=== PATIENT | female | born 2000 ===

== ENCOUNTER 2025-03-27 15:12 | Emergency (ER) | payer OTHER, SELFPAY ==
--- OUTSIDE RECORDS SUMMARY | 2024-11-27 03:30 | XMS_ITS ---
Author Organization [facility] vices Address [address] [place], [place] [id number] Care Team Providers Care Upsetter Helper Name Role Phone Emily Ngo Primary Care Provider [phone] REASON FOR VISIT WWE Social History Sex Assigned At : Social History Observation Description Sex Assigned At Female Encounters Encounter Location Date Provider Diagnosis Main [address] [place] [id number] 11/27/2024 Emily Ngo Plan Of Treatment No Information Progress Notes * Kathleen MACDONALDDOB:[birth year] (24 yo F)Acc No.[id number]:11/27/2024 Medical Note Patient: Stephany rileyKathleen das :?Emily NgoDOB:2000???Age:24 Y???Sex: FemaleDate:11/27/2024Phone:[phone]:[address] [place], [place] [id number] Subjective: * Chief Complaints: * W WE Billing Information: * Procedure Codes: * Electronic signature of NOAH Mullins on 03/27/2025 at 06:16 PM ESTSign off status: Pending * Provider: Stephany Ngo Date: 0 11/27/2024 Generated for Printing/Faxing/eTransmitting on:?03/27/2025 06:16 PM EST
--- OUTSIDE RECORDS SUMMARY | 2024-12-16 04:15 | XMS_ITS ---
Author Organization [facility] vices Address [address] [place] [id number] Care Team Providers Care Congressional Aide Name Role Phone Emily Ngo Primary Care Provider REASON FOR VISIT WWE Social History Sex Assigned At : Social History Observation Description Sex Assigned At Female Encounters Encounter Location Date Provider Diagnosis [place] [address] [place] [id number] 12/16/2024 Emily Ngo Plan Of Treatment No Information Progress Notes * Kathleen MACDONALDDOB:[birth year] (24 yo F)Acc No.[id number]:12/16/2024 Progress Notes Patient: Stephany rileypippa Kathleen :?Emily NgoDOB:2000???Age:24 Y???Sex: FemaleDate:12/16/2024Phone:[phone]:[address] [place], [place] [address] Subjective: * Chief Complaints: * W WE Billing Information: * Procedure Codes: * Electronic signature of NOAH Mullins on 03/27/2025 at 06:16 PM ESTSign off status: Pending * Provider: Stephany Ngo Date: 0 12/16/2024 Generated for Printing/Faxing/eTransmitting on:?03/27/2025 06:16 PM EST
--- OUTSIDE RECORDS SUMMARY | 2025-03-10 07:13 | XMS_ITS | Continuity of Care Document ---
Author Organization [facility] Address [address] [place] [address] Phone Care Team Providers Care Installation Tech Name Role Phone Case Edwige REBOLLEDO Unavailable Unavailable Allergies, Adverse Reactions, Alerts Substance Reaction Status Criticality No Known Allergies Active No Inform ation Medications Medication Instructions Dosage Effective Dates (start - stop) Status Comments clindamycin HCl 300 mg capsule take 1 capsule by oral route every 6 hours 300 MG - No Longer Active Procedures Procedure Date Extract; Erupted Th/exposted Rt 025 Oral Hygiene Instruction Oral Hygiene Instruction Treatment Not Completed Oral Hygiene Instruction Comp Oral Eval New/estab Patient 2024 Advance Directives Directive Yes / No Effective Date File Name No Information Encounters Encounter Description Practice Location Reason(s) For Visit Diagnoses Date Provider Providers Copied on Encounter [facility], [address] [place] [address], [id number] , tel: [phone] Dental Clinic Dental caries, unspecifiedEncounter for screening for dental disorders 5 Case DDS Edwige. [address] [place] [address], [id number] , [place]. tel: [phone] [facility], [address] [place] [address], [id number] , tel: [phone] Dental Clinic Encounter for screening for dental disorders 5 Case DDS Edwige. [address] [place] [address], [id number] , [place]. tel: [phone] [facility], [address], [place], [id number] , [place] tel: [phone] Dental Clinic dental new (chief complaint) Encounter for screening for dental disorders 5 Case DDJared Gibbons. [address], [place], [id number] , [place]. tel: [phone] Family History Family Member Type Diagnosis Age At Onset No Information Payers Payer name Insurance type Covered green party ID Authoriza tion(s) No Information Social History Type Description Quantity Date Captured Comments Sex Female Smoking Status No Information Chief Complaint And Reason For Visit No Information Reason For Referral Reason For Referral No Information Plan Of Treatment Date Type Action Status Goal Tdap Vaccine. Due on 2024 due Goal PAP. Due on due Goal RLP. Due on due Goal Depression screening. Due on due Goal Hepatitis C screening. Due o n due Goal Influenza vaccine. Due on No due Goal PRAPARE ASSESSMENT. Due on N due Goal Tdap. Due on due Goal Unhealthy drug use screening . Due on due Appointment Kathleen Blas an BOOKED Appointment Kathleen Blas an BOOKED History Of Present Illness Encounter Date Complaint History Of Prese nt Illness dental new establish dental care Functional Status Date Functional Assessmen t No Information Instructions Date Instruction Additional Infor mation No Information Assessments Type Assessment Date No Information Patient Care Teams Name Effective Dates (start - stop) Status Members No Information
[2025-03-27 15:26] VITALS: BP 115/85; PULSE 89; TEMP 36.9; O2SAT 97; BMI 31.2
--- NOTE | 2025-03-27 16:53 | ED_ITS ---
HPI HPI - General Adult General Chief complaint: Nausea/Vomiting/Diarrhea Stated complaint: STOMACH PAIN, DIARRHEA Time Seen by Provider: 03/27/25 16:40 Source: patient Mode of arrival: walk-in Limitations: language barrier History of Present Illness HPI narrative: 24-year-old female presents for diarrhea. She has been having this for 3 weeks and she finished a course of an antibiotic for a dental issue. She does not know the name of the antibiotic. No blood in the stool and has been watery. She has not had any known ill contacts who have had diarrhea. No vomiting or fever or hematochezia. She does not complain of abdominal pain. Related Data Allergies Allergy/AdvReac Type Severity Reaction Status Date / Time No Known Drug Allergies Allergy Verified 03/27/25 15:26 Review of Systems ROS Narrative A ten point review of systems is negative except as noted above. PFSH PFSH Social History Little interest or pleasure in doing things: not at all Feeling down, depressed, or hopeless: not at all Exam Narrative Exam Narrative: Nurses note and vital signs reviewed General:The patient appears well and in no apparent distress.Patient is resting comfortably on cart. Skin:Warm, dry, no pallor noted.There is no rash noted. Head:Normocephalic, atraumatic Eye: Normal conjunctiva, no drainage Ears, Nose, Mouth, and Throat: oral mucosa is moist. Nares patent. Cardiovascular:Regular Rate and Rhythm Respiratory:Patient is in no distress, no accessory muscle use, lungs are clear to auscultation, no wheezing, rales or rhonchi Back:non-tender GI: Soft and nontender and nondistended Musculoskeletal: The patient has no evidence of calf tenderness, no pitting edema, symmetrical pulses noted bilaterally Neurological: Awake and alert Psychiatric:Cooperative Constitutional Vital Signs, click to edit/add: Last Vital Signs Temp 98.5 F 03/27/25 15: Pulse 81 03/27/25 17:12 Resp 16 03/27/25 17:12 BP 119/79 03/27/25 17:12 Pulse Ox 100 03/27/25 17:12 O2 Del Method Room Air 03/27/25 17:12 Course Vital Signs Vital signs: Vital Signs Temperature 98.5 F 03/27/25 15:26 Pulse Rate 89 03/27/25 15:26 Respiratory Rate 18 03/27/25 15:26 Blood Pressure 115/85 03/27/25 15:26 Pulse Oximetry 97 03/27/25 15:26 Oxygen Delivery Method Room Air 03/27/25 15:26 Temperature 98.5 F 03/27/25 15:26 Pulse Rate 81 03/27/25 17:12 Respiratory Rate 16 03/27/25 17:12 Blood Pressure 119/79 03/27/25 17:12 Pulse Oximetry 100 03/27/25 17:12 Oxygen Delivery Method Room Air 03/27/25 17:12 Medical Decision Making MDM Narrative Medical decision making narrative: Blood work is nonspecific. She was unable to provide a stool specimen which was going to be ordered for culture and C. difficile. Differential Diagnosis Differential Diagnosis: Diarrhea, C. difficile, gastroenteritis Lab Data Lab results reviewed: Yes I reviewed the patient's lab results Labs: Lab Results 03/27/25 Range/Units 16:56 WBC 6.3 (4.0-11.0) 10^3/uL RBC 4.29 (4.20-5.40) 10^6/uL Hgb 13.2 (12.0-16.0) g/dL Hct 37.7 (36.0-48.0) % MCV 87.9 (81.0-99.0) fL MCH 30.8 (26.7-34.0) pg MCHC 35.0 (29.9-35.2) g/dL RDW 11.6 (11.0-15.0) % Plt Count 244 (150-450) 10^3/uL MPV 10.4 (9.5-13.5) fL Neut % (Auto) 58.4 (43.0-75.0) % Lymph % (Auto) 30.4 (20.5-60.0) % [place] % (Auto) 9.4 (1.7-12.0) % Eos % (Auto) 1.0 (0.9-7.0) % Baso % (Auto) 0.5 (0.2-2.0) % Neut # (Auto) 3.7 (1.4-6.5) 10^3/uL Lymph # (Auto) 1.9 (1.2-3.8) 10^3/uL [place] # (Auto) 0.6 (0.3-0.8) 10^3/uL Eos # (Auto) 0.1 (0.0-0.7) 10^3/uL Baso # (Auto) 0.0 (0.0-0.1) 10^3/uL Abs Immat Gran (auto) 0.02 (0.00-0.03) 10^3/uL Imm/Tot Granulo (auto) 0.3 (0.0-0.5) % Sodium 137 (136-145) mmol/L Potassium 3.7 (3.5-5.1) mmol/L Chloride 103 (98-107) mmol/L Carbon Dioxide 29.6 (21.0-32.0) mmol/L Anion Gap 8.1 BUN 11.0 (7.0-18.0) mg/dL Creatinine 0.60 (0.55-1.02) mg/dL Est GFR ( Amer) >60 (>=60 mL/min/1.73m^2) Est GFR (Non-Af Amer) >60 (>=60 mL/min/1.73m^2) BUN/Creatinine Ratio 18.3 Glucose 102 (74-106) mg/dL Calcium 8.8 (8.5-10.1) mg/dL Discharge Plan Discharge Chief Complaint: Nausea/Vomiting/Diarrhea Clinical Impression: Diarrhea Patient Disposition: Home, Self-Care Time of Disposition Decision: 18:06 Condition: Good Mode of Transportation: Private Vehicle Print Language: Belizean Instructions: Acute Diarrhea (ED)
[2025-03-27 17:01] LABS: Hematocrit 37.7 % (36.0-48.0); Hemoglobin 13.2 g/dL (12.0-16.0); Immature Granulocytes Abs Auto 0.02 10^3/uL (0.00-0.03); Immature Granulocytes Pct Auto 0.3 % (0.0-0.5); Lymphocytes Absolute Auto 1.9 10^3/uL (1.2-3.8); Mean Corpuscular HGB Conc 35.0 g/dL (29.9-35.2); Mean Corpuscular Hemoglobin 30.8 pg (26.7-34.0); Mean Corpuscular Volume 87.9 fL (81.0-99.0); Platelet Count 244 10^3/uL (150-450); Red Blood Count 4.29 10^6/uL (4.20-5.40); White Blood Count 6.3 10^3/uL (4.0-11.0)
[2025-03-27 17:12] VITALS: BP 119/79; PULSE 81; O2SAT 100
[2025-03-27 17:12] LABS: Anion Gap 8.1; Blood Urea Nitrogen 11.0 mg/dL (7.0-18.0); Calcium 8.8 mg/dL (8.5-10.1); Carbon Dioxide 29.6 mmol/L (21.0-32.0); Chloride 103 mmol/L (98-107); Estimated GFR (African America >60 (>=60 mL/min/1.73m^2); Estimated GFR (Non-African Ame >60 (>=60 mL/min/1.73m^2); Glucose 102 mg/dL (74-106); Potassium 3.7 mmol/L (3.5-5.1); Sodium 137 mmol/L (136-145)
--- OUTSIDE RECORDS SUMMARY | 2025-03-27 18:16 | XMS_ITS | Clinical Summary ---
Author Organization [facility] Address [address] [place] [address] Care Team Providers Care Patient Services Representative Name Role Phone Unavailable Primary Care Provider Unavailabl e Social History Tobacco UseTypesPacks/DayYears UsedDateSmoking Tobacco: Never Assessed CommentsUnknownSex and Gender InformationValueDate RecordedSex Assigned at Not on fileLegal YcqDfjvbv70/04/2025 11:36 AM ESTGender IdentityNot on file Sexual OrientationNot on file Plan of Treatment DateTypeDepartmentCare Team (Latest Contact Info)Vsyarxnxopz58/04/2026 10:00 AM ESTOffice Visit [facility] [address] [place], [phone] Clare Brown [place] [address] [place], [facility]11 Insurance
--- OUTSIDE RECORDS SUMMARY | 2025-03-27 18:16 | XMS_ITS | Patient Health Record ---
Author Organization [facility] vice Address [address] [place], [place] [address] Care Team Providers Care Seasoning Mixer Name Role Phone Emily Ngo Primary Care Provider Allergies No Known Allergies Reason For Referral No Information Medications Medication SIG (Take, Route, Frequency, Duration) Notes Start Date End Date Status Amoxicillin 500 MG Capsule 1 capsule Orally ever y 8 hrs; Duration: 10 days 5ActiveIbuprofen 800 MG Tablet1 tablet with food or milk as needed Orally every 8 hrs; Duration: 30 days5Active Social History Tobacco Use: Social History Observation Description Date Details (start date - stop date) Never Smoker NA - NA Sex Assigned At : Social History Observation Description Sex Assigned At Female Social History Social DeterminantsSocial InfoQuestionAnswerNotesPRAPAREWhat is your current housing situation?I have housingAre you worried about losing your housing?NoWhat is the highest level of school that you have finished?High school diploma or GED What is your current work situation?Unemployed and seeking workIn the past year, have you or any family members you live with been unable to get any of the following when it was really needed? Check all that apply Food,Clothing,Utilities,Phone,I do not have problems meeting my needsHas lack of transportation kept you from medical appointments, meetings, work or from getting things needed for daily living?NoHow often do you see or talk to people that you care about and feel close to? (For example: talkingto friends on the phone, visiting friends or family, going to jainism or club meetings)More than 5 times a weekHow stressed are you? Stress is when someone feels tense, nervous, anxious, or can't sleep at nightbecause their mind is troubledA little bitIn the past year have you spent more than 2 nights in a row in a half-way, retirement, snf center, orjuvenile correctional facility?NoAre you a refugee?NoWhat country are you from?Country Other than the [place] (please write in notes)Do you feel physically and emotionally safe where you currently live?YesIn the past year, have you been afraid of your partner or ex-partner?NoPRAPARE Score:11Drugs/Alcohol/Caffeine:Social InfoQuestionAnswerNotesCAGE-AID Questionnaire (2018 Edition)Have you ever felt that you ought to cut down on your drinking or drug use?NoHave people annoyed you by criticizing your drinking or drug use?NoHave you ever felt bad or guilty about your drinking or drug use? NoHave you ever had a drink or used drugs first thing in the morning to steady your nerves or to get rid of a hangover?NoCAGE-AID Upfru3YyrgxnfnvddqlhHvsealio Tobacco Use:Social InfoQuestionAnswerNotesTobacco Control (Standard)Tobacco use: NonsmokerAdditional DetailsCategorySocial InfoOptionsDetailsMiscellaneous: Culture/Language BarrierYesBarriers to LearningInterpreter neededLearning PreferenceDoing or practicingHow often do you need to have someone help you read instructionsOften Vital Signs Heart Rate 77 /min 11/18/2024 Amrik Contreras 11/18/2024 09:47:30 AM EDT > Temperature 98.8 degrees Fahrenheit 11/18/2024 Harsh Chong 11/18/2024 09:47:30 AM EDT > Respiratory Rate 18 /min 11/18/2024 Harsh Contreras 11/18/2024 09:47:30 AM EDT > Height-cm 157.48 cm 11/18/2024 Amrik Contreras 11/18/2024 09:47:30 AM EDT > Blood pressure diastolic 77 mm Hg 11/18/2024 Harsh Gauthier 11/18/2024 09:47:30 AM EDT > Weight-kg 74.39 kg 11/18/2024 Amrik Contreras 11/18/2024 09:47:30 AM EDT > Height 62 in 11/18/2024 Amrik Contreras 11/18/2024 09:47:30 AM EDT > Blood pressure systolic 114 mm Hg 11/18/2024 Harsh Chong 11/18/2024 09:47:30 AM EDT > Weight 164 lbs 11/18/2024 Amrik Contreras 11/18/2024 09:47:30 AM EDT > BMI 29.99 kg/m2 11/18/2024 Amrik Contreras 11/18/2024 09:47:30 AM EDT > Encounters Encounter Location Date Provider Diagnosis Main [address] [place], [place] [id number] 11/18/2024 Emily Ngo Overweight E66.3 ; Mouth abscess K12.2 ; Body mass index [BMI] 29.0-29.9, adult Z68.29 ; Screening for cardiovascular condition Z13.6 ; Chronic fatigue R53.82 and Screening for HIV (human immunodeficiency virus) Z11.4 Assessments Encounter Date Diagnosis (ICD Code) Assessment Notes Treatment Notes Treatment Clinical Notes Section Notes 11/18/2024 Overweight (ICD-10 - E66.3) 11/18/2024Mouth abscess (ICD-10 - K12.2) RX sent for Amoxicillin and Ibuprofen at this time Pt encouraged to do warm salt water gargles to prevent infection. Pt encouraged to schedule w/ Dentist for further evaluation and treatment of infection. F/U 1 week for WWE 11/18/2024ody mass index [BMI] 29.0-29.9, adult (ICD-10 - Z68.29)11/18/2024 Screening for cardiovascular condition (ICD-10 - Z13.6)Baseline lab work ordered, will call w/ wnjsadc5411/18/2024hronic fatigue (ICD-10 - R53.82) 11/18/2024Screening for HIV (human immunodeficiency virus) (ICD-10 - Z11.4)One time screening Plan Of Treatment No Information Insurance Providers Payer Name Payer Address Payer Phone Subscriber Number Group Number Insured Name Patient Relationship to Insured Coverage Start Date Coverage End Date [employer] [facility] [id number] [place] [phone] [id number] Rudolph Macdonald - patient is the [id number] 2024
== END 2025-03-27 18:23 | disposition home or self-care (01) ==
PROVIDERS: Emergency Provider Emergency Medicine
DX: R19.7 Diarrhea, unspecified (principal)
CPT/HCPCS: 36415; 80048; 85025; 87045; 87046; 87427; 87493; 99283